=== PATIENT | male | born 1985 | race Two or more races ===

== ENCOUNTER → 2018-07-30 | Emergency (ER) | payer OTHER ==
[~2018-07-30] VITALS: Ht 180.3 cm; Wt 117.9 kg
[~2018-07-30] MED LIST: HYDROCODONE/APAP 5/325MG 1 EACH TABLET ONE; HYDROCODONE/APAP 5/325MG 1 EACH TABLET PO ONE; NAPROXEN 250 MG TABLET ONE; NAPROXEN 250 MG TABLET PO STA
--- NOTE | 2018-07-30 17:01 | NUR ---
short posterior 4inch splint by DENVER Escalante. Crutch training done by same. For discharge- ACI given verbalizes understanding . DC home with family in stable condition
[2018-07-30 17:04] VITALS: BP 143/89
== END | disposition home or self-care (01) ==
LOC: ER 14:59
DX: M79.671 Pain in right foot (principal); W23.0XXA Caught, crushed, jammed, or pinched between moving objects, initial encounter; Y93.89 Activity, other specified; Y92.89 Other specified places as the place of occurrence of the external cause; Y99.8 Other external cause status
CPT/HCPCS: 29515; 73610; 73630; 99284; A4606; Z7610